=== PATIENT | male | born 1975 | race Caucasian/White ===

== ENCOUNTER 2017-05-10 11:15 | Inpatient (IN) | payer OTHER ==
[2017-05-10 11:35] VITALS: BMI 27.3
--- NOTE | 2017-05-10 13:35 | HP ---
Admission ROS S - HPI Chief Complaint: I WANT TO GO TO REHAB Allergies/Adverse Reactions: Allergies Allergy/AdvReac Type Severity Reaction Status Date / Time pork derived (porcine) Allergy Severe Rash Verified 05/10/17 12:28 NKDA Allergy Uncoded 05/10/17 12:29 Exam Limitations: No Limitations - Ebola screening Have you traveled outside of the country in the last 21 days: No Have you had contact with anyone from an Ebola affected area: No Have you been sick,other than usual withdrawal symptoms: No Do you have a fever: No - Review of Systems Constitutional: No Symptoms Reported, Weight Stable EENT: reports: No Symptoms Reported Respiratory: reports: No Symptoms reported Cardiac: reports: No Symptoms Reported GI: reports: No Symptoms Reported : reports: No Symptoms Reported Musculoskeletal: reports: No Symptoms Reported Integumentary: reports: No Symptoms Reported Neuro: reports: No Symptoms reported Endocrine: reports: No Symptoms Reported Hematology: reports: No Symptoms Reported Psychiatric: reports: Judgement Intact, Mood/Affect Appropiate, Orientated x3 Other Systems: Reviewed and Negative Patient History - Patient Medical History Hx Anemia: No Hx Asthma: No Hx Chronic Obstructive Pulmonary Disease (COPD): No Hx Cancer: No Hx Cardiac Disorders: No Hx Congestive Heart Failure: No Hx Hypertension: No Hx Hypercholesterolemia: No Hx Pacemaker: No HX Cerebrovascular Accident: No Hx Seizures: No Hx Diabetes: No Hx Gastrointestinal Disorders: No Hx Liver Disease: No Hx Genitourinary Disorders: No Hx Sexually Transmitted Disorders: No Hx Renal Disease (ESRD): No Hx Thyroid Disease: No Hx Human Immunodeficiency Virus (HIV): No Hx Hepatitis C: No Hx Depression: No Hx Suicide Attempt: No Hx Bipolar Disorder: Yes Hx Schizophrenia: No - Patient Surgical History Past Surgical History: No Hx Neurologic Surgery: No Hx Cataract Extraction: No Hx Cardiac Surgery: No Hx Lung Surgery: No Hx Breast Surgery: No Hx Breast Biopsy: No Hx Abdominal Surgery: No Hx Appendectomy: No Hx Cholecystectomy: No Hx Genitourinary Surgery: No Hx Orthopedic Surgery: No - PPD History Previous Implant?: Yes Documented Results: Positive w/o proof Implanted On Prior [facility] Admission?: No PPD to be Administered?: No - Smoking Cessation Smoking history: Current every day smoker Have you smoked in the past 12 months: Yes Aproximately how many cigarettes per day: 10 Cigars Per Day: 0 Hx Chewing Tobacco Use: No Initiated information on smoking cessation: Yes 'Breaking Loose' booklet given: 05/10/17 - Substance & Tx. History Hx Alcohol Use: Yes Hx Substance Use: No Substance Use Type: Alcohol, Cocaine Hx Substance Use Treatment: Yes ([facility]) - Substances Abused Crack Route: Smoking Frequency: Daily Amount used: $10-20 Age of first use: 41 Date of Last Use: 04/16/17 Alcohol-vodka/beer Route: Oral Frequency: Daily Amount used: 1 pt./2-6 pks. Age of first use: 15 Date of Last Use: 04/16/17 Family Disease History - Family Disease History Family Disease History: Heart Disease: Father (), Other: Father Admission Physical Exam [facility] - Vital Signs Vital Signs: Vital Signs - 24 hr 05/10/17 11:33 Temperature 98.3 F Pulse Rate 70 Respiratory 18 Rate Blood Pressure 128/83 - Physical General Appearance: Yes: No Apparent Distress, Nourished, Appropriately Dressed HEENTM: Yes: Hearing grossly Normal, Normal ENT Inspection, Normocephalic, Normal Voice Respiratory: Yes: Chest Non-Tender, Lungs Clear, Normal Breath Sounds, No Respiratory Distress, No Accessory Muscle Use Neck: Yes: Supple, Trachea in good position Breast: Yes: Breasts Symetrical, No masses Cardiology: Yes: Regular Rhythm, Regular Rate, S1, S2 Abdominal: Yes: Normal Bowel Sounds, Non Tender, Soft Genitourinary: Yes: Within Normal Limits Back: Yes: Normal Inspection Musculoskeletal: Yes: full range of Motion, Gait Steady Extremities: Yes: Normal Inspection, Normal Range of Motion, Non-Tender Neurological: Yes: Fully Oriented, Alert, Motor Strength 5/5, Normal Response, Depressed Affect Integumentary: Yes: Warm Lymphatic: Yes: Within Normal Limits - Diagnostic (1) Alcohol dependence with uncomplicated withdrawal Current Visit: Yes Status: Acute (2) Nicotine dependence Current Visit: Yes Status: Acute Qualifiers: Nicotine product type: cigarettes Substance use status: in withdrawal Qualified Code(s): F17.213 - Nicotine dependence, cigarettes, with withdrawal (3) Bipolar II disorder Current Visit: Yes Status: Suspected (4) Methadone maintenance therapy patient Current Visit: Yes Status: Chronic Comment: 90 mg daily (5) Positive PPD, treated Current Visit: Yes Status: Resolved Cleared for Admission [facility] - Detox or Rehab [facility] Level of Care: Observation Bed Detox Regimen/Protocol: Not Applicable Claeared for Rehab Admission: Yes [facility] Breath Alcohol Content Breath Alcohol Content: 0 Urine Drug Screen - Results Drug Screen Negative: No Urine Drug Screen Results: MTD-Methadone Inpatient Rehab Admission - Initial Determination Are CD services needed?: Yes Free of communicable disease: Yes Not in need of hospitalization: Yes - Rehab Admission Criteria Previous failed treatment: Yes Poor recovery environment: Yes Comorbidities: Yes Lacks judgement: No Patient is meeting Inpatient Rehab admission criteria:: Yes
[2017-05-10] MEDS ORDERED: MAGNESIUM CITRATE 300 ML BOTTLE PO PRN (13:45)
[2017-05-10] MEDS ORDERED: MAG HYDROX/AL HYDROX/SIMETH 30 ML UNIT-DOSE CUP PO PRN (13:45)
[2017-05-10] MEDS ORDERED: IBUPROFEN 400 MG TABLET (FP) PO PRN (13:45)
[2017-05-10] MEDS ORDERED: ACETAMINOPHEN 325 MG TABLET (FP) PO PRN (13:45)
[2017-05-10] MEDS ORDERED: MAGNESIUM HYDROX 2400MG/30ML ORAL SUSPENSION 30 ML CUP PO PRN (13:45)
[2017-05-10] MEDS ORDERED: NICOTINE POLACRILEX 2 MG GUM BUC PRN (13:45)
[2017-05-10] MEDS ORDERED: P-EPHED 60MG/TRIPROLIDI 2.5MG TABLET PO PRN (13:45)
[2017-05-10] MEDS ORDERED: guaiFENesin/D-METHORPHAN HB 10 ML UNIT-DOSE CUPS PO PRN (13:45)
[2017-05-10] MEDS ORDERED: LOPERAMIDE HCL 2 MG CAPSULE PO PRN (13:45)
[2017-05-10] MEDS ORDERED: MENTHOL/PHENOL 1 EACH UD MM PRN (13:45)
[2017-05-10 17:50] LABS: URINE APPEARANCE CLEAR; URINE BILIRUBIN NEGATIVE (NEGATIVE); URINE BLOOD NEGATIVE (NEGATIVE); URINE COLOR LTYELLOW; URINE GLUCOSE (UA) 3+ (NEGATIVE); URINE KETONE TRACE (NEGATIVE); URINE LEUK ESTERASE NEGATIVE (NEGATIVE); URINE NITRITE NEGATIVE (NEGATIVE); URINE PROTEIN NEGATIVE (NEGATIVE); URINE UROBILINOGEN NEGATIVE mg/dL (0.2-1.0)
[2017-05-10] MEDS: OLANZapine 10 MG TABLET PO SCH (21:18)
[2017-05-10] MEDS: DULoxetine HCL 30 MG CAPSULE.DR (FP) PO SCH (21:18)
[2017-05-10] MEDS: THIAMINE HCL 100 MG TABLET (FP) PO SCH (21:18)
[2017-05-10] MEDS: DIVALPROEX SODIUM 250 MG TABLET E.C. PO SCH (21:18)
[2017-05-11] MEDS ORDERED: METHADONE HCL 40 MG DISPERSABLE TABLET ONE (05:57)
[2017-05-11] MEDS ORDERED: METHADONE HCL 10 MG TABLET ONE (05:57)
[2017-05-11] MEDS ORDERED: METHADONE HCL 10 MG TABLET PO SCH (06:00)
[2017-05-11] MEDS: METHADONE 80 MG, METHADONE 10 MG PO SCH (06:04)
[2017-05-11] MEDS: OLANZapine 10 MG TABLET PO SCH ×2 (09:52→21:24)
[2017-05-11] MEDS: NICOTINE 14 MG/24 HOURS TOPICAL PATCH TD SCH (09:52)
[2017-05-11] MEDS: PRENATAL VITAMINS W/ FOLIC ACID TABLET (FP) PO SCH (09:52)
[2017-05-11] MEDS: DIVALPROEX SODIUM 250 MG TABLET E.C. PO SCH ×2 (09:52→21:24)
[2017-05-11 10:14] LABS: HEMATOCRIT 38.5 % (35.4-49); HEMOGLOBIN 12.6 GM/dL (11.7-16.9); MCH 28.8 pg (25.7-33.7); MCHC 32.8 g/dl (32.0-35.9); MEAN CELL VOLUME 87.8 fl (80-96); MEAN PLT VOLUME 10.7 fl (7.5-11.1); PLATELET COUNT 161 K/MM3 (134-434); RBC 4.39 M/mm3 (4.00-5.60); RDW 15.1 % (11.9-15.9)
[2017-05-11 10:26] LABS: CHLORIDE 99 mmol/L (98-107); POTASSIUM 4.6 mmol/L (3.5-5.1); SODIUM 136 mmol/L (136-145)
[2017-05-11 10:42] LABS: ALBUMIN 3.5 g/dl (3.4-5.0); ALK PHOS 131 U/L (45-117); ANION GAP 4 (8-16); BILIRUBIN,TOTAL 0.3 mg/dL (0.2-1.0); BLOOD UREA NITROGEN 23 mg/dL (7-18); CALCIUM 8.7 mg/dL (8.5-10.1); CO2 33 mmol/L (21-32); SGOT/AST 28 U/L (15-37); SGPT/ALT 45 U/L (12-78); TOT PROT 7.7 g/dl (6.4-8.2)
[2017-05-11 11:00] LABS: GLUCOSE,RANDOM 422 mg/dL (74-106)
[2017-05-11] MEDS ORDERED: metFORMIN HCL 500 MG TABLET (FP) PO ONE (11:35)
--- NOTE | 2017-05-11 14:10 | HP ---
Psychiatrist Admission - Data Date of interview: 05/11/17 [facility] Identifying data: This is the first inpatient rehabilitation admission for this 42 year old AA male father of one, unemployed and on SSI, currently homeless. Medical History: Smokes cigaretts 10 a day, on MMTP 90 mg/daily. Psychiatric History: Patient reports was diagnosed with depression, first psychiatric hospitalization in 2012 after the loss of his 6 months old son, states was his first depressed episode, he reports 3 subsequent hospitalizations with most recent for one month on 04/11 to [facility] from where he was transferred to . He currently on Depakote 250 mg, Cymbalta 30 mg and Zyprexa 15 mg po hs. Patient reports history of suicidal thoughts but no attempts. Reports was diagnosed as Bipolar disorder. Physical/Sexual Abuse/Trauma History: Patient denies history of sexual, physical and verbal abuse. Vital Signs: Vital Signs - 24 hr 05/11/17 05/11/17 05/11/17 00:44 03:30 06:35 Temperature 97.8 F Pulse Rate 59 L Respiratory 18 18 19 Rate Blood Pressure 109/74 Allergies/Adverse Reactions: Allergies Allergy/AdvReac Type Severity Reaction Status Date / Time pork derived (porcine) Allergy Severe Rash Verified 05/10/17 12:28 No Known Drug Allergies Allergy Unknown Verified 05/10/17 14:43 NKDA Allergy Uncoded 05/10/17 12:29 Date of last physical exam: 05/10/17 Concur with the findings of this exam: Yes - Substance Abuse/Tx History Hx Alcohol Use: Yes Hx Substance Use: Yes Substance Use Type: Alcohol (1 pint of vodka, 2- 6 packs beer), Cocaine ($10-20) Hx Substance Use Treatment: Yes Mental Status Exam - Mental Status Exam Alert and Oriented to: Time, Place, Person Cognitive Function: Grossly Intact Patient Appearance: Well Groomed Mood: Sad Affect: Blunted, Constricted Patient Behavior: Fatigued, Cooperative Speech Pattern: Clear, Appropriate Voice Loudness: Normal Thought Process: Goal Oriented Thought Disorder: Not Present Hallucinations: Denies Suicidal Ideation: Denies Homicidal Ideation: Denies Insight/Judgement: Fair Sleep: Poorly, Difficulty falling asleep Appetite: Poor, Weight loss (11 lbs in one month) Muscle strength/Tone: Normal Gait/Station: Normal Psychiatric Findings - Problem List ([place] 1, 2,3) (1) Alcohol dependence Current Visit: Yes Status: Acute (2) Cocaine dependence Current Visit: Yes Status: Acute (3) Bipolar I disorder with depression Current Visit: Yes Status: Acute (4) Nicotine dependence Current Visit: Yes Status: Acute Qualifiers: Nicotine product type: cigarettes Substance use status: in withdrawal Qualified Code(s): F17.213 - Nicotine dependence, cigarettes, with withdrawal (5) Methadone maintenance therapy patient Current Visit: Yes Status: Chronic Comment: 90 mg daily - Initial Treatment Plan Initial Treatment Plan: Will contiue current medications, monitor progress as needed.
--- NOTE | 2017-05-11 16:21 | PN ---
[facility] Progress Note Note: Patient with abnormal BGM. Patient reports familial history of DM II from his mother. Patient reports urinary frequency and increase thirst. Vital Signs Temperature 97.8 F 05/11/17 06:35 Pulse Rate 59 L 05/11/17 06:35 Respiratory Rate 19 05/11/17 06:35 Blood Pressure 109/74 05/11/17 06:35 O2 Sat by Pulse Oximetry (%) Laboratory Last Values WBC 8.0 K/mm3 (4.0-10.0) 05/11/17 05:50 RBC 4.39 M/mm3 (4.00-5.60) 05/11/17 05:50 Hgb 12.6 GM/dL (11.7-16.9) 05/11/17 05:50 Hct 38.5 % (35.4-49) 05/11/17 05:50 MCV 87.8 fl (80-96) 05/11/17 05:50 MCH 28.8 pg (25.7-33.7) 05/11/17 05:50 MCHC 32.8 g/dl (32.0-35.9) 05/11/17 05:50 RDW 15.1 % (11.9-15.9) 05/11/17 05:50 Plt Count 161 K/MM3 (134-434) 05/11/17 05:50 MPV 10.7 fl (7.5-11.1) 05/11/17 05:50 Sodium 136 mmol/L (136-145) 05/11/17 05:50 Potassium 4.6 mmol/L (3.5-5.1) 05/11/17 05:50 Chloride 99 mmol/L (98-107) 05/11/17 05:50 Carbon Dioxide 33 mmol/L (21-32) H 05/11/17 05:50 Anion Gap 4 (8-16) L 05/11/17 05:50 BUN 23 mg/dL (7-18) H 05/11/17 05:50 Creatinine 1.0 mg/dL (0.7-1.3) 05/11/17 05:50 Creat Clearance w eGFR > 60 (>60) 05/11/17 05:50 Random Glucose 422 mg/dL (74-106) H* 05/11/17 05:50 Calcium 8.7 mg/dL (8.5-10.1) 05/11/17 05:50 Total Bilirubin 0.3 mg/dL (0.2-1.0) 05/11/17 05:50 AST 28 U/L (15-37) 05/11/17 05:50 ALT 45 U/L (12-78) 05/11/17 05:50 Alkaline Phosphatase 131 U/L (45-117) H 05/11/17 05:50 Total Protein 7.7 g/dl (6.4-8.2) 05/11/17 05:50 Albumin 3.5 g/dl (3.4-5.0) 05/11/17 05:50 Urine Color Ltyellow 05/10/17 15:30 Urine Appearance Clear 05/10/17 15:30 Urine pH 6.0 (5.0-8.0) 05/10/17 15:30 Ur Specific [place] 1.017 (1.001-1.035) 05/10/17 15:30 Urine Protein Negative (NEGATIVE) 05/10/17 15:30 Urine Glucose (UA) 3+ (NEGATIVE) H 05/10/17 15:30 Urine Ketones Trace (NEGATIVE) H 05/10/17 15:30 Urine Blood Negative (NEGATIVE) 05/10/17 15:30 Urine Nitrite Negative (NEGATIVE) 05/10/17 15:30 Urine Bilirubin Negative (NEGATIVE) 05/10/17 15:30 Urine Urobilinogen Negative mg/dL (0.2-1.0) 05/10/17 15:30 Ur Leukocyte Esterase Negative (NEGATIVE) 05/10/17 15:30 Valproic Acid 86.224 ug/ml (50-100) 05/11/17 05:50 RPR Titer Nonreactive (NONREACTIVE) 05/11/17 05:50 Labs reviewed ROS: General:n calm, denies poor appetite difficulty sleeping HR: denies no chest pain, palpitations, SOB Neuro: denies dizziness, or paresthesia, Endo: + increase thirst Assessment GENERAL APPEARANCE: Well developed, well nourished, alert and cooperative, and appears to be in no acute distress. CARDIAC: Normal S1 and S2. No S3, S4 or murmurs. Rhythm is regular. No edema LUNGS: Clear to auscultation and percussion without rales, rhonchi, wheezing or diminished breath sounds. NEUROLOGICAL: CN II-XII intact. SKIN: Skin no lesions or eruptions. + dry flaky skin, both heels and inner thigh Plan: Lab results reviewed with patint, verbalizes understanding hemoglobin A1C order BGM Insulin sliding scale Increase fluids NCS diet Continue to monitor
[2017-05-11] MEDS: INSULIN SLIDING SCALE (NOVOLOG) 1 VIAL SQ SCH (16:56)
[2017-05-11] MEDS ORDERED: INSULIN (NOVOLOG) ASPART 100 UNITS/ML 10ML VIAL ONE (17:20)
--- NOTE | 2017-05-11 17:22 | EKG ---
Test Reason : Blood Pressure : / mmHG Vent. Rate : 063 BPM Atrial Rate : 063 BPM P-R Int : 130 ms QRS Dur : 090 ms QT Int : 470 ms P-R-T Axes : 066 036 -11 degrees QTc Int : 480 ms NORMAL SINUS RHYTHM T WAVE ABNORMALITY, CONSIDER ANTEROLATERAL ISCHEMIA PROLONGED QT ABNORMAL ECG WHEN COMPARED WITH ECG OF 10-MAY-2017 15:28, NO SIGNIFICANT CHANGE WAS FOUND Confirmed by Ibrahima Maciel ([id number]) on 05/11/2017 5:22:22 PM Referred By: Nelson CANCHOLA Confirmed By:Ibrahima Maciel
[2017-05-11] MEDS: THIAMINE HCL 100 MG TABLET (FP) PO SCH (21:24)
[2017-05-11] MEDS: SUVOREXANT 10 MG TABLET PO SCH (21:24)
[2017-05-11] MEDS: DULoxetine HCL 30 MG CAPSULE.DR (FP) PO SCH (21:25)
--- NOTE | 2017-05-12 01:03 | EKG ---
Test Reason : Blood Pressure : / mmHG Vent. Rate : 076 BPM Atrial Rate : 076 BPM P-R Int : 126 ms QRS Dur : 088 ms QT Int : 436 ms P-R-T Axes : 067 035 011 degrees QTc Int : 490 ms NORMAL SINUS RHYTHM NONSPECIFIC T WAVE ABNORMALITY PROLONGED QT ABNORMAL ECG NO PREVIOUS ECGS AVAILABLE Confirmed by KAYLENE THOMPSON MD ([id number]) on 05/12/2017 1:03:10 AM Referred By: Nelson CANCHOLA Confirmed By:KAYLENE THOMPSON MD
[2017-05-12] MEDS ORDERED: METHADONE HCL 40 MG DISPERSABLE TABLET ONE (03:27)
[2017-05-12] MEDS ORDERED: METHADONE HCL 10 MG TABLET ONE (03:27)
[2017-05-12] MEDS: METHADONE 80 MG, METHADONE 10 MG PO SCH (06:13)
[2017-05-12] MEDS: INSULIN SLIDING SCALE (NOVOLOG) 1 VIAL SQ SCH ×3 (06:14→17:01)
[2017-05-12] MEDS: PRENATAL VITAMINS W/ FOLIC ACID TABLET (FP) PO SCH (09:49)
[2017-05-12] MEDS: OLANZapine 10 MG TABLET PO SCH ×2 (09:49→21:02)
[2017-05-12] MEDS: NICOTINE 14 MG/24 HOURS TOPICAL PATCH TD SCH (09:49)
[2017-05-12] MEDS: DIVALPROEX SODIUM 250 MG TABLET E.C. PO SCH ×2 (09:49→21:02)
[2017-05-12] MEDS ORDERED: INSULIN (NOVOLOG) ASPART 100 UNITS/ML 10ML VIAL ONE (11:56)
[2017-05-12] MEDS: SUVOREXANT 10 MG TABLET PO SCH (21:02)
[2017-05-12] MEDS: DULoxetine HCL 30 MG CAPSULE.DR (FP) PO SCH (21:02)
[2017-05-12] MEDS: THIAMINE HCL 100 MG TABLET (FP) PO SCH (21:02)
[2017-05-13] MEDS ORDERED: METHADONE HCL 10 MG TABLET ONE (03:18)
[2017-05-13] MEDS ORDERED: METHADONE HCL 40 MG DISPERSABLE TABLET ONE (03:18)
[2017-05-13] MEDS: INSULIN SLIDING SCALE (NOVOLOG) 1 VIAL SQ SCH ×3 (06:28→16:50)
[2017-05-13] MEDS: METHADONE 80 MG, METHADONE 10 MG PO SCH (06:28)
[2017-05-13] MEDS: PRENATAL VITAMINS W/ FOLIC ACID TABLET (FP) PO SCH (10:04)
[2017-05-13] MEDS: OLANZapine 10 MG TABLET PO SCH ×2 (10:04→21:00)
[2017-05-13] MEDS: DIVALPROEX SODIUM 250 MG TABLET E.C. PO SCH ×2 (10:05→21:00)
[2017-05-13] MEDS: NICOTINE 14 MG/24 HOURS TOPICAL PATCH TD SCH (10:06)
[2017-05-13] MEDS ORDERED: INSULIN (NOVOLOG) ASPART 100 UNITS/ML 10ML VIAL ONE (17:17)
[2017-05-13] MEDS: SUVOREXANT 10 MG TABLET PO SCH (21:00)
[2017-05-13] MEDS: DULoxetine HCL 30 MG CAPSULE.DR (FP) PO SCH (21:00)
[2017-05-13] MEDS: THIAMINE HCL 100 MG TABLET (FP) PO SCH (21:00)
[2017-05-14] MEDS ORDERED: METHADONE HCL 10 MG TABLET ONE (03:22)
[2017-05-14] MEDS ORDERED: METHADONE HCL 40 MG DISPERSABLE TABLET ONE (03:22)
[2017-05-14] MEDS: METHADONE 80 MG, METHADONE 10 MG PO SCH (06:18)
[2017-05-14] MEDS: INSULIN SLIDING SCALE (NOVOLOG) 1 VIAL SQ SCH ×3 (06:29→16:47)
[2017-05-14] MEDS: PRENATAL VITAMINS W/ FOLIC ACID TABLET (FP) PO SCH (09:43)
[2017-05-14] MEDS: DIVALPROEX SODIUM 250 MG TABLET E.C. PO SCH ×2 (09:43→21:06)
[2017-05-14] MEDS: NICOTINE 14 MG/24 HOURS TOPICAL PATCH TD SCH (09:43)
[2017-05-14] MEDS: OLANZapine 10 MG TABLET PO SCH ×2 (09:43→21:06)
[2017-05-14] MEDS ORDERED: INSULIN (NOVOLOG) ASPART 100 UNITS/ML 10ML VIAL ONE (11:57)
[2017-05-14] MEDS: DULoxetine HCL 30 MG CAPSULE.DR (FP) PO SCH (21:06)
[2017-05-14] MEDS: SUVOREXANT 10 MG TABLET PO SCH (21:06)
[2017-05-14] MEDS: THIAMINE HCL 100 MG TABLET (FP) PO SCH (21:06)
[2017-05-15] MEDS ORDERED: METHADONE HCL 10 MG TABLET ONE (04:56)
[2017-05-15] MEDS ORDERED: METHADONE HCL 40 MG DISPERSABLE TABLET ONE (04:56)
[2017-05-15] MEDS: INSULIN SLIDING SCALE (NOVOLOG) 1 VIAL SQ SCH ×3 (06:24→16:38)
[2017-05-15] MEDS: METHADONE 80 MG, METHADONE 10 MG PO SCH (06:25)
[2017-05-15] MEDS ORDERED: INSULIN (NOVOLOG) ASPART 100 UNITS/ML 10ML VIAL ONE ×3 (06:46→16:35)
[2017-05-15] MEDS: PRENATAL VITAMINS W/ FOLIC ACID TABLET (FP) PO SCH (09:51)
[2017-05-15] MEDS: NICOTINE 14 MG/24 HOURS TOPICAL PATCH TD SCH (09:51)
[2017-05-15] MEDS: DIVALPROEX SODIUM 250 MG TABLET E.C. PO SCH ×2 (09:51→21:03)
[2017-05-15] MEDS: OLANZapine 10 MG TABLET PO SCH ×2 (09:51→21:03)
[2017-05-15] MEDS: SUVOREXANT 10 MG TABLET PO SCH (21:03)
[2017-05-15] MEDS: DULoxetine HCL 30 MG CAPSULE.DR (FP) PO SCH (21:03)
[2017-05-15] MEDS: THIAMINE HCL 100 MG TABLET (FP) PO SCH (21:03)
[2017-05-16] MEDS ORDERED: METHADONE HCL 10 MG TABLET ONE (05:00)
[2017-05-16] MEDS ORDERED: METHADONE HCL 40 MG DISPERSABLE TABLET ONE (05:01)
[2017-05-16] MEDS: METHADONE 80 MG, METHADONE 10 MG PO SCH (06:44)
[2017-05-16] MEDS ORDERED: INSULIN (NOVOLOG) ASPART 100 UNITS/ML 10ML VIAL ONE ×2 (07:48→11:55)
[2017-05-16] MEDS: INSULIN SLIDING SCALE (NOVOLOG) 1 VIAL SQ SCH ×3 (07:49→16:55)
[2017-05-16] MEDS: NICOTINE 14 MG/24 HOURS TOPICAL PATCH TD SCH (09:46)
[2017-05-16] MEDS: PRENATAL VITAMINS W/ FOLIC ACID TABLET (FP) PO SCH (09:46)
[2017-05-16] MEDS: DIVALPROEX SODIUM 250 MG TABLET E.C. PO SCH ×2 (09:46→21:03)
[2017-05-16] MEDS: OLANZapine 10 MG TABLET PO SCH ×2 (09:46→21:03)
[2017-05-16] MEDS: DULoxetine HCL 30 MG CAPSULE.DR (FP) PO SCH (21:03)
[2017-05-16] MEDS: SUVOREXANT 10 MG TABLET PO SCH (21:05)
[2017-05-16] MEDS: THIAMINE HCL 100 MG TABLET (FP) PO SCH (21:05)
--- NOTE | 2017-05-17 01:21 | PN ---
[facility] Progress Note Note: dose renewal for methadone 90 mg daily entered
[2017-05-17] MEDS ORDERED: METHADONE HCL 10 MG TABLET ONE (05:59)
[2017-05-17] MEDS ORDERED: METHADONE HCL 40 MG DISPERSABLE TABLET ONE (05:59)
[2017-05-17] MEDS: METHADONE 80 MG, METHADONE 10 MG PO SCH (06:13)
[2017-05-17] MEDS: INSULIN SLIDING SCALE (NOVOLOG) 1 VIAL SQ SCH ×3 (06:13→16:38)
[2017-05-17] MEDS: PRENATAL VITAMINS W/ FOLIC ACID TABLET (FP) PO SCH (10:10)
[2017-05-17] MEDS: OLANZapine 10 MG TABLET PO SCH ×2 (10:10→21:03)
[2017-05-17] MEDS: NICOTINE 14 MG/24 HOURS TOPICAL PATCH TD SCH (10:10)
[2017-05-17] MEDS: DIVALPROEX SODIUM 250 MG TABLET E.C. PO SCH ×2 (10:11→21:03)
[2017-05-17] MEDS ORDERED: INSULIN (NOVOLOG) ASPART 100 UNITS/ML 10ML VIAL ONE ×2 (11:57→16:36)
--- NOTE | 2017-05-17 15:55 | PN ---
[facility] Progress Note Note: pt c/o insomnia, reports past good response to trazodone without side-effects, will add 50 mg po hs, monitor progress as needed
[2017-05-17] MEDS: DULoxetine HCL 30 MG CAPSULE.DR (FP) PO SCH (21:04)
[2017-05-17] MEDS: SUVOREXANT 10 MG TABLET PO SCH (21:04)
[2017-05-17] MEDS: THIAMINE HCL 100 MG TABLET (FP) PO SCH (21:04)
[2017-05-17] MEDS ORDERED: traZODone HCL 50 MG TABLET (FP) PO SCH (22:00)
[2017-05-18] MEDS ORDERED: METHADONE HCL 10 MG TABLET ONE (03:26)
[2017-05-18] MEDS ORDERED: METHADONE HCL 40 MG DISPERSABLE TABLET ONE (03:27)
[2017-05-18] MEDS: METHADONE 80 MG, METHADONE 10 MG PO SCH (06:14)
[2017-05-18] MEDS: INSULIN SLIDING SCALE (NOVOLOG) 1 VIAL SQ SCH ×3 (06:15→16:51)
[2017-05-18] MEDS: PRENATAL VITAMINS W/ FOLIC ACID TABLET (FP) PO SCH (09:42)
[2017-05-18] MEDS: DIVALPROEX SODIUM 250 MG TABLET E.C. PO SCH ×2 (09:42→21:05)
[2017-05-18] MEDS: NICOTINE 14 MG/24 HOURS TOPICAL PATCH TD SCH (09:42)
[2017-05-18] MEDS: OLANZapine 10 MG TABLET PO SCH ×2 (09:42→21:05)
[2017-05-18] MEDS ORDERED: INSULIN (NOVOLOG) ASPART 100 UNITS/ML 10ML VIAL ONE ×2 (11:55→17:07)
--- NOTE | 2017-05-18 14:46 | PN ---
Psychiatric Progress Note Vital Signs: Vital Signs Period Temp Pulse Resp BP Sys/Perez Pulse Ox Last 24 Hr 98.0 F 66 18-19 119/78 Date of Session: 05/18/17 Chief Complaint:: "insomnia, racing thoughts" HPI: Patient is addressing alcohol, cocaine, nicotine dependence comorbid Bipolar Disorder. Current Medications: Active Medications Generic Name Dose Route Start Last Admin Trade Name Freq PRN Reason Stop Dose Admin Acetaminophen 650 mg 05/10/17 13:45 Tylenol - PO Q4H PRN FEVER Al Hydroxide/Mg Hydroxide 30 ml 05/10/17 13:45 Mylanta Oral Suspension - PO Q6H PRN DYSPEPSIA Divalproex Sodium 250 mg 05/10/17 22:00 05/18/17 09:42 Depakote - PO 250 mg BID PHI Administration Duloxetine HCl 30 mg 05/10/17 22:00 05/17/17 21:04 Cymbalta - PO 30 mg HS PHI Administration Eucalyptus/Menthol/Phenol/Sorbitol 1 each 05/10/17 13:45 Cepastat Lozenge - MM Q4H PRN SORE THROAT Guaifenesin 10 ml 05/10/17 13:45 Robitussin Dm - PO Q6H PRN COUGH Ibuprofen 400 mg 05/10/17 13:45 Motrin - PO Q6H PRN Pain level 4-6 Insulin Aspart 1 vial 05/11/17 16:30 05/18/17 11:54 Novolog Vial Sliding Scale - SQ 6 unit TIDAC PHI Administration Protocol Loperamide HCl 4 mg 05/10/17 13:45 Imodium - PO Q6H PRN DIARRHEA Magnesium Citrate 300 ml 05/10/17 13:45 Citroma - PO Q48H PRN CONSTIPATION Magnesium Hydroxide 30 ml 05/10/17 13:45 Milk Of Magnesia - PO DAILY PRN CONSTIPATION Metformin HCl 500 mg 05/12/17 07:00 05/18/17 06:15 Glucophage Xr - PO 500 mg DAILY@0700 [facility] Administration Methadone HCl 80 mg/ Methadone 90 mg 05/17/17 06:00 05/18/17 06:14 HCl 10 mg PO 90 mg DAILY@0600 PHI Administration Nicotine 14 mg 05/11/17 10:00 05/18/17 09:42 Nicoderm Patch - TD Not Given DAILY [facility] Nicotine Polacrilex 2 mg 05/10/17 13:45 Nicorette Gum - BUC Q2H PRN NICOTINE REPLACEMENT RX Olanzapine 10 mg 05/10/17 22:00 05/18/17 09:42 Zyprexa - PO 10 mg BID PHI Administration Multivit/Folic Acid/Iron 1 tab 05/11/17 10:00 05/18/17 09:42 Vitamins ([facility]) - PO 1 tab DAILY PHI Administration Pseudoephedrine/Triprolidine 1 combo 05/10/17 13:45 Actifed - PO TID PRN NASAL CONGESTION Suvorexant 10 mg 05/11/17 22:00 05/17/17 21:04 Belsomra PO 05/18/17 21:59 10 mg HS PHI Administration Thiamine HCl 100 mg 05/10/17 22:00 05/17/17 21:04 Vitamin B1 - PO 100 mg HS PHI Administration Trazodone HCl 150 mg 05/18/17 14:41 Desyrel - PO HS PHI Medication(s) Change(s): increase Trazodone 150 mg po hs, r/n Belsomra. Current Side Effect: No Lab tests ordered: No Lab tests reviewed: Yes Provider note:: Patient was een today, reports having difficult time to fall and maintain sleep, next day he is unable to focus in groups, feels tired. Reviewed medications with the patient, will increase Trazodone and r/n Belsomra , sleeping hygiene discussed with the patient, supportive therapy provided, contineu to mnoitor progress. Total face to face time:: 25 Mental Status Exam - Mental Status Exam Alert and Oriented to: Time, Place, Person Cognitive Function: Good Patient Appearance: Well Groomed Mood: Sad, Anxious Affect: Mood Congruent, Blunted Patient Behavior: Cooperative Speech Pattern: Appropriate Voice Loudness: Normal Thought Process: Goal Oriented Thought Disorder: Not Present Hallucinations: Denies Suicidal Ideation: Denies Homicidal Ideation: Denies Insight/Judgement: Fair Sleep: Poorly, Difficulty falling asleep Appetite: Fair Muscle strength/Tone: Normal Psychiatric Treatment Plan - Problem List (1) Alcohol dependence Current Visit: Yes (2) Cocaine dependence Current Visit: Yes Qualifiers: Substance use status: uncomplicated Qualified Code(s): F14.20 - Cocaine dependence, uncomplicated (3) Bipolar I disorder with depression Current Visit: Yes (4) Nicotine dependence Current Visit: Yes Qualifiers: Nicotine product type: cigarettes Substance use status: in withdrawal Qualified Code(s): F17.213 - Nicotine dependence, cigarettes, with withdrawal (5) Methadone maintenance therapy patient Current Visit: Yes Comment: 90 mg daily
[2017-05-18] MEDS: THIAMINE HCL 100 MG TABLET (FP) PO SCH (21:05)
[2017-05-18] MEDS: traZODone HCL 50 MG TABLET (FP) PO SCH (21:05)
[2017-05-18] MEDS: DULoxetine HCL 30 MG CAPSULE.DR (FP) PO SCH (21:06)
[2017-05-19] MEDS ORDERED: METHADONE HCL 40 MG DISPERSABLE TABLET ONE (03:27)
[2017-05-19] MEDS ORDERED: METHADONE HCL 10 MG TABLET ONE (03:27)
[2017-05-19] MEDS: METHADONE 80 MG, METHADONE 10 MG PO SCH (06:07)
[2017-05-19] MEDS: INSULIN SLIDING SCALE (NOVOLOG) 1 VIAL SQ SCH ×3 (06:08→16:35)
[2017-05-19] MEDS: DIVALPROEX SODIUM 250 MG TABLET E.C. PO SCH ×2 (09:43→21:03)
[2017-05-19] MEDS: NICOTINE 14 MG/24 HOURS TOPICAL PATCH TD SCH (09:43)
[2017-05-19] MEDS: PRENATAL VITAMINS W/ FOLIC ACID TABLET (FP) PO SCH (09:43)
[2017-05-19] MEDS: OLANZapine 10 MG TABLET PO SCH ×2 (09:43→21:03)
[2017-05-19] MEDS ORDERED: INSULIN (NOVOLOG) ASPART 100 UNITS/ML 10ML VIAL ONE ×2 (11:53→16:55)
[2017-05-19] MEDS: traZODone HCL 50 MG TABLET (FP) PO SCH (21:03)
[2017-05-19] MEDS: DULoxetine HCL 30 MG CAPSULE.DR (FP) PO SCH (21:03)
[2017-05-19] MEDS: THIAMINE HCL 100 MG TABLET (FP) PO SCH (21:03)
[2017-05-20] MEDS ORDERED: METHADONE HCL 10 MG TABLET ONE (05:11)
[2017-05-20] MEDS ORDERED: METHADONE HCL 40 MG DISPERSABLE TABLET ONE (05:11)
[2017-05-20] MEDS: INSULIN SLIDING SCALE (NOVOLOG) 1 VIAL SQ SCH ×3 (06:17→17:04)
[2017-05-20] MEDS: METHADONE 80 MG, METHADONE 10 MG PO SCH (06:17)
[2017-05-20] MEDS ORDERED: INSULIN (NOVOLOG) ASPART 100 UNITS/ML 10ML VIAL ONE ×3 (06:49→17:03)
[2017-05-20] MEDS: OLANZapine 10 MG TABLET PO SCH ×2 (09:48→21:32)
[2017-05-20] MEDS: PRENATAL VITAMINS W/ FOLIC ACID TABLET (FP) PO SCH (09:48)
[2017-05-20] MEDS: DIVALPROEX SODIUM 250 MG TABLET E.C. PO SCH ×2 (09:48→21:31)
[2017-05-20] MEDS: NICOTINE 14 MG/24 HOURS TOPICAL PATCH TD SCH (09:48)
[2017-05-20] MEDS: THIAMINE HCL 100 MG TABLET (FP) PO SCH (21:31)
[2017-05-20] MEDS: traZODone HCL 50 MG TABLET (FP) PO SCH (21:32)
[2017-05-20] MEDS: DULoxetine HCL 30 MG CAPSULE.DR (FP) PO SCH (21:32)
[2017-05-21] MEDS ORDERED: METHADONE HCL 40 MG DISPERSABLE TABLET ONE (04:01)
[2017-05-21] MEDS ORDERED: METHADONE HCL 10 MG TABLET ONE (04:01)
[2017-05-21] MEDS: METHADONE 80 MG, METHADONE 10 MG PO SCH (06:33)
[2017-05-21] MEDS ORDERED: INSULIN (NOVOLOG) ASPART 100 UNITS/ML 10ML VIAL ONE ×3 (06:36→17:12)
[2017-05-21] MEDS: INSULIN SLIDING SCALE (NOVOLOG) 1 VIAL SQ SCH ×3 (06:37→16:53)
[2017-05-21] MEDS: NICOTINE 14 MG/24 HOURS TOPICAL PATCH TD SCH (09:28)
[2017-05-21] MEDS: DIVALPROEX SODIUM 250 MG TABLET E.C. PO SCH ×2 (09:28→21:03)
[2017-05-21] MEDS: PRENATAL VITAMINS W/ FOLIC ACID TABLET (FP) PO SCH (09:29)
[2017-05-21] MEDS: OLANZapine 10 MG TABLET PO SCH ×2 (09:29→21:03)
[2017-05-21] MEDS: DULoxetine HCL 30 MG CAPSULE.DR (FP) PO SCH (21:03)
[2017-05-21] MEDS: traZODone HCL 50 MG TABLET (FP) PO SCH (21:03)
[2017-05-21] MEDS: THIAMINE HCL 100 MG TABLET (FP) PO SCH (21:03)
[2017-05-22] MEDS ORDERED: METHADONE HCL 40 MG DISPERSABLE TABLET ONE (03:27)
[2017-05-22] MEDS ORDERED: METHADONE HCL 10 MG TABLET ONE (03:27)
[2017-05-22] MEDS: METHADONE 80 MG, METHADONE 10 MG PO SCH (06:19)
[2017-05-22] MEDS: INSULIN SLIDING SCALE (NOVOLOG) 1 VIAL SQ SCH ×3 (06:20→16:59)
[2017-05-22] MEDS ORDERED: INSULIN (NOVOLOG) ASPART 100 UNITS/ML 10ML VIAL ONE ×3 (06:52→16:58)
[2017-05-22] MEDS: PRENATAL VITAMINS W/ FOLIC ACID TABLET (FP) PO SCH (09:53)
[2017-05-22] MEDS: NICOTINE 14 MG/24 HOURS TOPICAL PATCH TD SCH (09:53)
[2017-05-22] MEDS: DIVALPROEX SODIUM 250 MG TABLET E.C. PO SCH ×2 (09:53→21:14)
[2017-05-22] MEDS: OLANZapine 10 MG TABLET PO SCH ×2 (09:53→21:13)
[2017-05-22] MEDS: traZODone HCL 50 MG TABLET (FP) PO SCH (21:13)
[2017-05-22] MEDS: THIAMINE HCL 100 MG TABLET (FP) PO SCH (21:13)
[2017-05-22] MEDS: DULoxetine HCL 30 MG CAPSULE.DR (FP) PO SCH (21:13)
[2017-05-23] MEDS ORDERED: METHADONE HCL 10 MG TABLET ONE (03:23)
[2017-05-23] MEDS ORDERED: METHADONE HCL 40 MG DISPERSABLE TABLET ONE (03:24)
[2017-05-23] MEDS: INSULIN SLIDING SCALE (NOVOLOG) 1 VIAL SQ SCH ×3 (06:33→16:47)
[2017-05-23] MEDS: METHADONE 80 MG, METHADONE 10 MG PO SCH (06:33)
[2017-05-23] MEDS: DIVALPROEX SODIUM 250 MG TABLET E.C. PO SCH ×2 (10:00→21:03)
[2017-05-23] MEDS: PRENATAL VITAMINS W/ FOLIC ACID TABLET (FP) PO SCH (10:00)
[2017-05-23] MEDS: OLANZapine 10 MG TABLET PO SCH ×2 (10:01→21:03)
[2017-05-23] MEDS: NICOTINE 14 MG/24 HOURS TOPICAL PATCH TD SCH (10:01)
[2017-05-23] MEDS ORDERED: INSULIN (NOVOLOG) ASPART 100 UNITS/ML 10ML VIAL ONE ×2 (11:56→17:08)
[2017-05-23] MEDS: DULoxetine HCL 30 MG CAPSULE.DR (FP) PO SCH (21:03)
[2017-05-23] MEDS: THIAMINE HCL 100 MG TABLET (FP) PO SCH (21:03)
[2017-05-23] MEDS: traZODone HCL 50 MG TABLET (FP) PO SCH (21:03)
[2017-05-24] MEDS ORDERED: METHADONE HCL 10 MG TABLET ONE (04:50)
[2017-05-24] MEDS ORDERED: METHADONE HCL 40 MG DISPERSABLE TABLET ONE (04:51)
[2017-05-24] MEDS: METHADONE 80 MG, METHADONE 10 MG PO SCH (07:08)
[2017-05-24] MEDS ORDERED: INSULIN (NOVOLOG) ASPART 100 UNITS/ML 10ML VIAL ONE ×3 (07:12→16:43)
[2017-05-24] MEDS: INSULIN SLIDING SCALE (NOVOLOG) 1 VIAL SQ SCH ×3 (07:44→16:44)
[2017-05-24] MEDS: OLANZapine 10 MG TABLET PO SCH ×2 (09:53→21:20)
[2017-05-24] MEDS: PRENATAL VITAMINS W/ FOLIC ACID TABLET (FP) PO SCH (09:54)
[2017-05-24] MEDS: NICOTINE 14 MG/24 HOURS TOPICAL PATCH TD SCH (09:54)
[2017-05-24] MEDS: DIVALPROEX SODIUM 250 MG TABLET E.C. PO SCH ×2 (10:17→21:20)
[2017-05-24] MEDS: traZODone HCL 50 MG TABLET (FP) PO SCH (21:20)
[2017-05-24] MEDS: THIAMINE HCL 100 MG TABLET (FP) PO SCH (21:20)
[2017-05-24] MEDS: DULoxetine HCL 30 MG CAPSULE.DR (FP) PO SCH (21:20)
[2017-05-25] MEDS ORDERED: METHADONE HCL 10 MG TABLET ONE (04:42)
[2017-05-25] MEDS ORDERED: METHADONE HCL 40 MG DISPERSABLE TABLET ONE (04:42)
[2017-05-25] MEDS: METHADONE 80 MG, METHADONE 10 MG PO SCH (06:32)
[2017-05-25] MEDS: INSULIN SLIDING SCALE (NOVOLOG) 1 VIAL SQ SCH ×3 (07:16→16:54)
[2017-05-25] MEDS ORDERED: INSULIN (NOVOLOG) ASPART 100 UNITS/ML 10ML VIAL ONE ×2 (07:57→11:52)
[2017-05-25] MEDS: OLANZapine 10 MG TABLET PO SCH ×2 (09:51→21:04)
[2017-05-25] MEDS: NICOTINE 14 MG/24 HOURS TOPICAL PATCH TD SCH (09:51)
[2017-05-25] MEDS: PRENATAL VITAMINS W/ FOLIC ACID TABLET (FP) PO SCH (09:51)
[2017-05-25] MEDS: DIVALPROEX SODIUM 250 MG TABLET E.C. PO SCH ×2 (09:51→21:04)
[2017-05-25] MEDS: traZODone HCL 50 MG TABLET (FP) PO SCH (21:04)
[2017-05-25] MEDS: DULoxetine HCL 30 MG CAPSULE.DR (FP) PO SCH (21:04)
[2017-05-25] MEDS: THIAMINE HCL 100 MG TABLET (FP) PO SCH (21:04)
[2017-05-26] MEDS ORDERED: METHADONE HCL 40 MG DISPERSABLE TABLET ONE (05:17)
[2017-05-26] MEDS ORDERED: METHADONE HCL 10 MG TABLET ONE (05:17)
[2017-05-26] MEDS: METHADONE 80 MG, METHADONE 10 MG PO SCH (06:40)
[2017-05-26] MEDS: INSULIN SLIDING SCALE (NOVOLOG) 1 VIAL SQ SCH (06:41)
[2017-05-26 06:53] VITALS: BP 131/98; PULSE 67; TEMP 98.3
[2017-05-26] MEDS: NICOTINE 14 MG/24 HOURS TOPICAL PATCH TD SCH (10:00)
[2017-05-26] MEDS: OLANZapine 10 MG TABLET PO SCH (10:00)
[2017-05-26] MEDS: DIVALPROEX SODIUM 250 MG TABLET E.C. PO SCH (10:01)
[2017-05-26] MEDS: PRENATAL VITAMINS W/ FOLIC ACID TABLET (FP) PO SCH (10:01)
--- NOTE | 2017-05-26 10:33 | PN ---
Psychiatric Progress Note Vital Signs: Vital Signs Period Temp Pulse Resp BP Sys/Perez Pulse Ox Last 24 Hr 98.3 F 67 18-18 131/98 Date of Session: 05/26/17 Chief Complaint:: discharge visit HPI: Patient is addressing alcohol, cocaine, nicotine dependence comorbid Bipolar Disorder. ROS: WNL Current Medications: Active Medications Generic Name Dose Route Start Last Admin Trade Name Freq PRN Reason Stop Dose Admin Acetaminophen 650 mg 05/10/17 13:45 Tylenol - PO Q4H PRN FEVER Al Hydroxide/Mg Hydroxide 30 ml 05/10/17 13:45 Mylanta Oral Suspension - PO Q6H PRN DYSPEPSIA Divalproex Sodium 250 mg 05/10/17 22:00 05/26/17 10:01 Depakote - PO 250 mg BID PHI Administration Duloxetine HCl 30 mg 05/10/17 22:00 05/25/17 21:04 Cymbalta - PO 30 mg HS PHI Administration Eucalyptus/Menthol/Phenol/Sorbitol 1 each 05/10/17 13:45 Cepastat Lozenge - MM Q4H PRN SORE THROAT Guaifenesin 10 ml 05/10/17 13:45 Robitussin Dm - PO Q6H PRN COUGH Ibuprofen 400 mg 05/10/17 13:45 Motrin - PO Q6H PRN Pain level 4-6 Insulin Aspart 1 vial 05/11/17 16:30 05/26/17 06:41 Novolog Vial Sliding Scale - SQ Not Given TIDAC [facility] Protocol Loperamide HCl 4 mg 05/10/17 13:45 Imodium - PO Q6H PRN DIARRHEA Magnesium Citrate 300 ml 05/10/17 13:45 Citroma - PO Q48H PRN CONSTIPATION Magnesium Hydroxide 30 ml 05/10/17 13:45 Milk Of Magnesia - PO DAILY PRN CONSTIPATION Metformin HCl 500 mg 05/12/17 07:00 05/26/17 06:40 Glucophage Xr - PO 500 mg DAILY@0700 PHI Administration Methadone HCl 80 mg/ Methadone 90 mg 05/24/17 06:00 05/26/17 06:40 HCl 10 mg PO 05/31/17 05:59 90 mg DAILY@0600 PHI Administration Nicotine 14 mg 05/11/17 10:00 05/26/17 10:00 Nicoderm Patch - TD Not Given DAILY [facility] Nicotine Polacrilex 2 mg 05/10/17 13:45 Nicorette Gum - BUC Q2H PRN NICOTINE REPLACEMENT RX Olanzapine 10 mg 05/10/17 22:00 05/26/17 10:00 Zyprexa - PO 10 mg BID PHI Administration Multivit/Folic Acid/Iron 1 tab 05/11/17 10:00 05/26/17 10:01 Vitamins ([facility]) - PO 1 tab DAILY PHI Administration Pseudoephedrine/Triprolidine 1 combo 05/10/17 13:45 Actifed - PO TID PRN NASAL CONGESTION Thiamine HCl 100 mg 05/10/17 22:00 05/25/17 21:04 Vitamin B1 - PO 100 mg HS PHI Administration Trazodone HCl 150 mg 05/18/17 22:00 05/25/17 21:04 Desyrel - PO 150 mg HS PHI Administration Current Side Effect: No Lab tests ordered: No Lab tests reviewed: Yes Provider note:: Patient has completed today his treatment andmet his goals, will continue to address his isssues at [facility] and f/u with a psychiatrist at [facility]. Patient gained insight into his addiction and motivated to continue maintian abstinence. He understands the negative impact his addicion over his major life areas including physical and mental health, also importance of utilizing all supports to prevent relapses, medications well tolerated, scripts provided, patient was encouraged to take medications as indicated and to follow up with his appointments, patient is stable for discharge today. Total face to face time:: 35 Mental Status Exam - Mental Status Exam Alert and Oriented to: Time, Place, Person Cognitive Function: Good Patient Appearance: Well Groomed Mood: Hopeful Affect: Appropriate, Mood Congruent Patient Behavior: Appropriate, Cooperative Speech Pattern: Appropriate Voice Loudness: Normal Thought Process: Intact, Goal Oriented Thought Disorder: Not Present Hallucinations: Denies Suicidal Ideation: Denies Homicidal Ideation: Denies Insight/Judgement: Good Sleep: Well Appetite: Good Muscle strength/Tone: Normal Gait/Station: Normal Psychiatric Treatment Plan - Problem List (1) Alcohol dependence Current Visit: Yes (2) Cocaine dependence Current Visit: Yes Qualifiers: Substance use status: uncomplicated Qualified Code(s): F14.20 - Cocaine dependence, uncomplicated (3) Bipolar I disorder with depression Current Visit: Yes (4) Nicotine dependence Current Visit: Yes Qualifiers: Nicotine product type: cigarettes Substance use status: in withdrawal Qualified Code(s): F17.213 - Nicotine dependence, cigarettes, with withdrawal (5) Methadone maintenance therapy patient Current Visit: Yes Comment: 90 mg daily
== END 2017-05-26 11:30 | disposition home or self-care (01) | DRG 772 ==
LOC: YASAS 11:15 → Y5N 13:59
PROVIDERS: ADMIT Psychiatry & Neurology Psychiatry; ATTEND Psychiatry & Neurology Psychiatry
PROC: HZ42ZZZ Group Counseling for Substance Abuse Treatment, Cognitive-Behavioral (ICD-10-PCS; principal; 2017-05-10)
DX: F11.23 Opioid dependence with withdrawal (principal); F10.230 Alcohol dependence with withdrawal, uncomplicated; F17.210 Nicotine dependence, cigarettes, uncomplicated; F31.9 Bipolar disorder, unspecified; Z59.0 Homelessness
CPT/HCPCS: 36415; 71046-TC-FY; 80053; 80164; 81003; 82962; 83036; 85027; 86593; 93005; 93010